=== PATIENT | male | born 1990 | race African-American/Black ===

== ENCOUNTER 2018-06-09 21:26 | Emergency (ER) | payer SELFPAY ==
[~2018-06-09] VITALS: Ht 185.4 cm; Wt 87.3 kg
[2018-06-09 21:32] VITALS: BP 158/98
[2018-06-09] MEDS ORDERED: MethylPREDNISolone SOD SUCC 125 MG/2 ML VIAL IVP ONE (22:00)
== END 2018-06-09 23:00 | disposition left against medical advice (07) ==
LOC: EMS 21:28
DX: T78.40XA Allergy, unspecified, initial encounter (principal); Z53.21 Procedure and treatment not carried out due to patient leaving prior to being seen by health care provider
CPT/HCPCS: J2930